=== PATIENT | male | born 1985 | race Caucasian/White ===

== ENCOUNTER 2017-05-08 01:49 | Emergency (ER) | payer OTHER ==
[~2017-05-08] VITALS: Ht 175.3 cm; Wt 108.2 kg
[2017-05-08 01:51] VITALS: BP 160/110; TEMP 97.6
[2017-05-08] MEDS ORDERED: FLONASEALLERGY NS (01:56)
[2017-05-08 02:27] LABS: PH 5 (5-8); SQUAMOUS EPITHELIAL None Seen /hpf; URINE APPEARANCE Clear; URINE BACTERIA None Seen /hpf; URINE BILIRUBIN Negative (NEGATIVE); URINE BLOOD 3+ (NEGATIVE); URINE COLOR Yellow; URINE GLUCOSE Negative (NEGATIVE); URINE KETONE Negative (NEGATIVE); URINE RBC >50 /hpf; URINE UROBILINOGEN Negative (NEGATIVE); URINE WBC 0-2 /hpf
[2017-05-08] MEDS ORDERED: ZOFRAN ODT4 MG PO (02:39)
[2017-05-08] MEDS ORDERED: NORCO 325 MG-51 TAB PO (02:39)
[2017-05-08 02:48] VITALS: PULSE 78
== END 2017-05-08 02:49 | disposition home or self-care (01) ==
LOC: COL.ER 01:49
PROVIDERS: Physician Assistant
DX: M54.89 Other dorsalgia (principal); R31.9 Hematuria, unspecified
CPT/HCPCS: J1885

== ENCOUNTER → 2017-05-10 | Outpatient (CLI) | payer OTHER ==
[~2017-05-10] MED LIST: FLONASEALLERGY NS; NORCO 325 MG-51 TAB PO; ZOFRAN ODT4 MG PO
== END ==
LOC: COL.RAD 15:18
DX: R31.9 Hematuria, unspecified (principal)